=== PATIENT | female | born 1980 | race Caucasian/White ===

== ENCOUNTER 2017-03-15 11:25 | Emergency (ER) | payer MEDICAID ==
[~2017-03-15] VITALS: Ht 157.5 cm; Wt 51.7 kg
[~2017-03-15 11:25] MED LIST: ADVIL200 MG PO; ALEVE220 MG PO; ALL DAY ALLERGY10 MG PO; AMOXICILLIN 50500 MG PO; AMOXICOT500 MG PO; AZITHROMYCIN250 MG PO; BUPRENORPHINE H1 TAB SL; BUSPAR 10MG TAB10 MG PO; BUT/APAP/CAF PO; CHLORZOXAZONE500 MG OR; CIPRO 500MG TA500 MG PO; DARVOCET-N 1001 EACH PO; DOXYCYCLINE HY100 M4 PO; EC NAPROSYN500 MG PO; EXCEDRIN MIGRAINE PO; EXCEDRIN TENSIO1 CAP PO; FLAGYL 500MG.500 MG PO; FLEXERIL10 MG PO; GABAPENTIN 600600 MG PO; GRALISE600 M1 PO; HYDROCODONE1 TABLET PO; IBUPROFEN800 MG PO; IMODIUM 2MG. CAP2 MG PO; LEVOTHYROXINE0.05 M2 PO; LODINE200 MG PO; LOPERAMIDE HCL2 MG OR; LORTAB 5/500 501 TAB PO; MEDROL 4MG. DOSE4 MG PO; MIRTAZAPINE15 MG PO; MOTRIN800 MG PO; MUCINEX600 M1 PO; NAPROSYN 500MG500 MG PO; NOMEDS *; PREDNISONE 10MG10 MG PO; PREDNISONE5 MG PO; PRENATAL VITAMI1 TA9 PO; PROMETHAZINE HC25 M1 PO; ROBAXIN 500 MG500 MG PO; TRAMADOL 50MG T50 MG PO; TRAZODONE HCL50 MG PO; TRAZODONE50 MG PO; TYLENOL EXTRA500 M1 PO; TYLENOL W/CODEI1 TA2 PO; ULTRAM50 MG PO; VICODIN 5/500 T1 TAB PO; VOLTAREN75 MG PO; ZOLOFT100 MG PO
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
--- OUTSIDE RECORDS SUMMARY | 2017-03-15 11:51 | External Medical Summary Rpt | CCD ---
Author Author , SHREYA CASH Address Unknown Phone Care Team Providers Care Radiological Health Specialist Name Role Phone [facility] [place], Unavailable Unavailable [facility] [place] ARNOLD, ARNOLD Unavailable Unavailable ARNOLD GOSIA, ARNOLD Unavailable Unavailable GOSIA [facility] Unavailable Unavailable SERVICE, [facility] Unavailable Unavailable [place], [facility], Unavailable Unavailable [facility] Unavailable Unavailable [place], [facility] [place] [facility]available [facility]available [facility] Unavailable Unavailable HOSPITA, [facility] Unavailable Unavailable INC, [facility] Unavailable Unavailable HOSPITAL, [facility] Unavailable [facility]available [facility] P, P GONZALEZ [facility], GON[facility] Unavailable Unavailable [facility], Unavailable Unavailable [facility], Unavailable Unavailable [facility] Un[facility], [facility] Unavailable Unavailable INTER[facility], [facility] Unavailable Unavailable SERVICES, [facility] JAROD MACK MD, Unavailable Unavailable JAROD MACK MD [facility], Unavailable Unavailable PLL[facility], [facility] Unavailable Unavailable LAB, [facility] PETTEY CUATE, PETTEDagoberto Unavailable Unavailable CUATE CASEY, Unavailable Unavailable ROGERIO HASSAN III Unavailable Unavailable Rigoberto Yao Unavailable Unavailable Rigoberto VALERO MD, III, MD [facility] Unavailable Unavailable OF [place], [facility] [place] Purpose Continuity of Care Document - 07-14-2010 through 2016 Problems Code Diagnosis DOS Provider Status J40 BRONCHITIS 11-30-2016 [facility] NOT PHYSICIAN SPECIFIED GROUP ACUTE OR CHRONIC J705 RESPIRATORY 08-21-2016 ARNOLD CONDITIONS DUE TO SMOKE INHALATION J069 ACUTE UPPER 07-06-2016 [facility] RESPIRATORY INFECTION UNSPECIFIED J189 PNEUMONIA 04-24-2016 AR[facility]OLD UNSPECIFIED ORGANISM R0989 OTH SPEC SX 04-20-2016 [facility] CIRC & RESP SYS R0602 SHORTNESS 04-19-2016 [facility] OF BREATH PHYSICIAN GROUP J209 ACUTE 04-07-2016 ARNOSVALDO GOSIA BRONCHITIS UNSPECIFIED R091 PLEURISY 04-07-2016 ARNOLD GOSIA B03808 PAIN IN 02-19-2016 SHE[facility] GOSIA UNSPECIFIED KNEE M6240 CONTRACTURE 02-19-2016 ARNOSVALDO GOSIA OF MUSCLE UNSPECIFIED SITE R7881 BACTEREMIA 02-19-2016 SHEILA GOSIA I313 PERICARDIAL 02-05-2016 [facility] NONINFLAMMA [facility]OUND[facility] TORY I361 NONRHEUMATI 02-05-2016 [facility] TRICUSPID SERV VALVE [facility]OUNDATION INSUFFICIEN CY I517 CARDIOMEGAL 02-05-2016 [facility] Y [facility] T20873 PAIN IN 02-01-2016 [facility] LEFT [facility] SHOULDER [facility] R221 LOCALIZED 02-01-2016 [facility] SWELLING [facility] MASS AND FOUNDATION LUMP NECK I38 ENDOCARDITI 01-30-2016 [facility] S VALVE SERV UNSPECIFIED FOUNDATION I76 SEPTIC 01-30-2016 [facility] ART[facility] EMBOLISM FOUND[facility] A4153 SEPSIS DUE 01-22-2016 [facility] TO SERRATIA SERV FOUND[facility] B182 CHRONIC 01-22-2016 [facility] VIRAL [facility] HEPATITIS C FOUNDATION I2690 SEPTIC 01-22-2016 [facility] PULMONARY SERV EMBO W/O FOUNDATION ACUTE COR PULMONALE I319 DISEASE OF 01-22-2016 [facility] PERICARDIUM SERV [facility] UNSPECIFIED J90 PLEURAL 01-17-2016 [facility] E[facility] NOT FOUNDATION ELSEWHERE CLASSIFIED R918 OTHER 01-17-2016 [facility] NONSPECIFIC SERV ABNORMAL FOUNDATION FINDING OF LUNG FIELD A419 SEPSIS 01-16-2016 [facility] UNSPECIFIED [place] ORGANISM I339 ACUTE AND 01-16-2016 [facility] SUBACUTE [place] ENDOCARDITI S UNSPECIFIED I371 NONRHEUMATI 01-16-2016 [facility] PULMONARY SERV VALVE FOUNDATION INSUFFICIEN CY I493 VENTRICULAR 01-16-2016 [facility] PREMATURE SERV DEPOLARIZAT FOUNDATION ION J9811 ATELECTASIS 01-16-2016 [facility] R9431 ABNORMAL 01-16-2016 [place] [facility] ELECTROCARD SERV IOGRAM [facility] Z9989 DEPENDENCE 01-16-2016 [facility] ON OTHER [place] ENABLING MACHINES & DEVICES B9689 OTH SPEC 01-15-2016 [facility] AGNT CAUSE INTERNAL DZ MED CLASSIFIED ELSW I330 ACUTE AND 01-15-2016 [place] SUBACUTE VALLEY INFECTIVE INTERNAL ENDOCARDITI MED S I959 HYPOTENSION 01-15-2016 [facility] UNSPECIFIED INC R0789 OTHER CHEST 01-15-2016 [place] PAIN [facility] R509 FEVER 01-15-2016 [...] ARNOLD GOSIA SINUSITIS UNSPECIFIED R4182 ALTERED 11-03-2015 [facility] MENTAL AMBULANCE STATUS SERVICE UNSPECIFIED [id number] POISN UNS 11-03-2015 [facility] RX MEDS BIO AMBULANCE SUBSTANCE SERVICE SLF-HRM INIT ENC R4020 UNSPECIFIED 11-02-2015 [facility] O94719 MORGAN 11-02-2015 [facility] SCALE [facility], SCORE 9-12 PLLC [id number] POISN UNS 11-02-2015 [facility] RX MEDS BIO PHYSICIANS, SUBSTANCE PLLC UNDET INIT ENC V20163 PAIN IN 10-21-2015 [place] W76341P CONTUSION 10-21-2015 [facility] OF LEFT PHYSICIANS, HAND PLLC INITIAL ENCOUNTER [id number] UNSPECIFIED 10-21-2015 [place] INJURY LT MEDICAL WRIST HAND IMAGING ASS FINGERS INITIAL Z720 TOBACCO USE 10-21-2015 [facility] I11502 UNSPECIFIED 10-03-2015 ARNOLD GOSIA ASTHMA WITH STATUS ASTHMATICUS Y50741 PAIN IN 09-13-2015 [facility] RIGHT KNEE PHYSICIANS, PLLC R83983 PAIN IN 09-13-2015 [facility] LEFT KNEE MEM [facility]OS[facility] INC M545 LOW BACK 09-13-2015 [facility] PAIN [facility], PLLC K279 PEPTIC ULCR 08-22-2015 SHE[facility]A ELISE SITE UNS UNS AC/CHRN W/O HEM/PERF E079 DISORDER OF 08-16-2015 [facility] UNSPECIFIED HOSPITA R0981 NASAL 08-16-2015 [facility] [place] [facility] HOSPITA Z5321 PROC & TX 08-16-2015 [facility] [place] NOT CARRIED COMMUNTIY OUT PT HOSPITA LEAVE PRIOR TO SEEN X93440 PERSONAL 08-16-2015 [facility] [place] HISTORY [facility] OTHER MALIG HOSPITA NEOPLASM STOMACH L639 ALOPECIA 07-03-2015 [facility] AREATA PHYSICIANS UNSPECIFIED GROUP L981 FACTITIAL 07-03-2015 [facility] DERMATITIS PHYSICIANS GROUP B029 ZOSTER 07-01-2015 SHE[facility]A ELISE WITHOUT COMPLICATIO NS K30 FUNCTIONAL 04-30-2015 [facility] DYSPEPSIA PHYSICIANS GROUP R1013 EPIGASTRIC 04-30-2015 [facility] PAIN PHYSICIANS GROUP R112 NAUSEA WITH 04-30-2015 [facility] VOMITING PHYSICIANS UNSPECIFIED GROUP R197 DIARRHEA 04-30-2015 [facility] UNSPECIFIED PHYSICIANS GROUP R079 CHEST PAIN 04-10-2015 [place] UNSPECIFIED MEDICAL IMAGING ASS R1010 UPPER 04-10-2015 [facility] ABDOMINAL PH[facility]IANS, PAIN [facility] UNSPECIFIED R109 UNSPECIFIED 04-10-2015 [facility] P M7050 OTHER 04-09-2015 [facility] BURSITIS OF MEM HOSP KNEE INC UNSPECIFIED KNEE Y61444 OTH SPEC 04-09-2015 [facility] ENTHESOPATH [facility]OS[facility] IES UNS LOW INC LIMB EXCLUD FOOT E785 HYPERLIPIDE 04-08-2015 [facility] UNSPECIFIED [place] R634 ABNORMAL 04-08-2015 [facility] WEIGHT LOSS PHYSICIANS LA M2241 CHONDROMALA 03-13-2015 [facility] SANGEETHA PHYSICIANS PATELLAE GROUP RIGHT KNEE M2242 CHONDROMALA 03-13-2015 [facility] SANGEETHA PHYSICIANS PATELLAE GROUP LEFT KNEE G5601 CARPAL 03-06-2015 [facility] TUNNEL PHYSICIANS SYNDROME GROUP RIGHT UPPER LIMB G5621 LESION OF 03-06-2015 [facility] ULNAR NERVE PHYSICIANS RIGHT GROUP UPPER LIMB B86 SCABIES 02-27-2015 R110 NAUSEA 02-27-2015 D88144 PAIN IN 02-17-2015 [place] RIGHT FOOT [facility]ICAL [facility] ASS C1079TZ CONTUSION 02-17-2015 [facility] RIGHT PHYSICIANS, FOOT PLLC INITIAL ENCOUNTER M33159W UNSPECIFIED 02-17-2015 [place] INJURY MEDICAL RIGHT FOOT IMAGING ASS INITIAL ENCOUNTER Z043 ENCOUNTER 02-17-2015 [place] EXAM & MEDICAL OBSERVATION IMAGING ASS FOLLOW OTH ACCIDENT A5901 TRICHOMONAL 02-08-2015 [facility], VULVOVAGINI PLLC TIS N739 FEMALE 02-08-2015 [facility] PELVIC PHYSICIANS, INFLAMMATOR PLLC Y DISEASE UNSPECIFIED 86761 SPRAIN AND 01-30-2015 [facility] STRAIN OF [facility] UNSPECIFIED HOSPITAL SITE OF WRIST 84655 PAIN IN 01-04-2015 [place] JOINT, MEDICAL FOREARM IMAGING ASS 57678 PAIN IN 01-04-2015 [place] JOINT, MEDICAL LOWER LEG IMAGING ASS 61292 INJURY OF 01-04-2015 [place] FACE AND MEDICAL NECK OTHER IMAGING ASS AND UNSPECIFIED 9593 INJURY 01-04-2015 [place] OTHER&UNSPE MEDICAL CIFIED IMAGING ASS ELBOW FOREARM&WRI ST 9597 INJURY 01-04-2015 [place] OTHER&UNSPE MEDICAL CIFIED KNEE IMAGING ASS LEG ANKLE&FOOT 9594 INJURY 11-30-2014 [place] OTHER AND MEDICAL UNSPECIFIED IMAGING ASS HAND EXCEPT FINGER 4619 ACUTE 11-02-2014 ARNOSVALDO ELISE SINUSITIS, UNSPECIFIED 24292 OSTEOARTHRO 11-02-2014 SHEILA ELISE S INVLV MX SITES BUT NOT SPEC GEN 7242 LUMBAGO 11-02-2014 ARNOSVALDO GOSIA 7231 CERVICALGIA 07-10-2014 [facility] 7245 UNSPECIFIED 07-10-2014 [place] BACKACHE MEDICAL [facility]ING ASS 3542 LESION OF 06-06-2014 [facility] ULNAR NERVE PHYSICIANS GROUP 3829 UNSPECIFIED 04-30-2014 ARNOLD GOSIA OTITIS MEDIA 86935 INSOMNIA 04-30-2014 ARNOLD GOSIA UNSPECIFIED 69727 ABDOMINAL 04-30-2014 ARNOSVALDO GOSIA PAIN, GENERALIZED 4659 ACUTE URIS 04-20-2014 ARNOLD GOSIA OF UNSPECIFIED SITE 4660 ACUTE 01-22-2014 SHEILA GOSIA BRONCHITIS 3670 HYPERMETROP 12-08-2013 [place] [address] CLOSED 09-26-2013 ARNOSVALDO GOSIA FRACTURE OF UNSPECIFIED PART OF FOREARM 08464 CONTUSION 09-26-2013 PETTEY JAM OF WRIST 84953 PAIN IN 09-21-2013 ART JOINT, BHARAT UPPER [...] OBJECTS 305.1 305.1 06-04-2013 Aiden TOBACCO USE [facility] 840.8 840.8 06-04-2013 Aiden SPRAIN [facility] SHOULDER/CO Hospital [facility] 920 920 06-04-2013 Aiden CONTUSION [facility] FACE/SCALP/ Hospital NCK E849.0 E849.0 06-04-2013 Aiden ACCIDENT IN [facility] E882 E882 FALL 06-04-2013 Aiden FROM [facility] 7840 HEADACHE 06-03-2013 WEHRMAN III CARMELA 8409 SPRAIN&STRA 06-03-2013 WEHRMAN III IN UNSPEC CARMELA SITE SHOULDER&UP PER ARM 54729 HEAD 06-03-2013 WEHRMAN III INJURY, CARMELA UNSPECIFIED E8849 OTHER 06-03-2013 WEHRMAN III ACCIDENTAL CARMELA FALL FROM ONE LEVEL TO ANOTHER 719.41 719.41 01-17-2013 Aiden JOINT [facility] 728.85 728.85 01-17-2013 Aiden SPASM OF [facility] V14.8 V14.8 01-17-2013 Aiden HX-DRUG [facility] ALLERGY [facility] 96705 ENTHESOPATH 08-30-2012 ARNOSVALDO GOSIA Y OF UNSPECIFIED SITE 88072 VARIANTS 03-28-2012 ARNOLD GOSIA MIGRAINE [facility] INTRACT MIGRAINE W/O SM 462 ACUTE 03-28-2012 ARNOLD GOSIA PHARYNGITIS 63564 PAIN IN 03-26-2012 [facility] MEDICAL ANKLE AND IMAGING ASS FOOT 37928 UNSPECIFIED 03-26-2012 [facility] SITE OF ANKLE SPRAIN AND STRAIN 94124 CONTUSION 03-26-2012 [facility] 21997 CONTUSION 03-26-2012 [facility] OF FOOT [facility] 69453 CRUSHING 03-26-2012 [facility] INJURY OF EMERGENCY FOOT SERVICES 8470 NECK SPRAIN 10-22-2011 [facility] AND STRAIN [facility]ERGENCY SERVICES 22508 PLICA 09-30-2011 [facility] SYNDROME PHYSICIANS GROUP 61102 PATELLAR 09-09-2011 [facility] TENDINITIS [facility] INC V571 OTHER 09-09-2011 [facility] PHYSICAL [facility] THERAPY INC 51135 PES 09-08-2011 [facility] ANSERINUS PHYSICIANS TENDINITIS GROUP OR BURSITIS 6262 EXCESSIVE 02-13-2011 [facility] [place] N 1121 CANDIDIASIS 01-19-2011 PATHOLOGY & OF [facility] CYTOLOGY [facility] LAB V7231 ROUTINE 01-19-2011 PATHOLOGY & GYNECOLOGIC CYTOLOGY AL LAB EXAMINATION 8400 ACROMIOCLAV 10-20-2010 [facility] SPR[facility] STRAIN 8471 THORACIC 10-20-2010 [facility] SPRAIN AND EMERG[facility] STRAIN SERVICES Allergies, Adverse [...] NT E HI AN A IN C FL 00 07 08 10 5 00 EA [...] 46 DE ZA 11 17 17 14 FL 0 67 PH IN AR E MA [...] ET NT HI AN A IN C FL 65 03 04 30 7 00 EA [...] ET NT HI AN A IN C FL 65 02 03 30 7 00 EA [...] 30 7- 1- 00 00 SI ve RI 31 20 20 47 DE DE 10 [...] 46 DE ZA 11 17 17 14 FL 0 67 PH IN AR E MA [...] 46 DE ZA 11 16 17 14 FL 0 67 PH IN AR E MA [...] 34 20 20 DE 90 11 11 RI 1 PH CH AR AE MA L CY S OF CY NT HI AN A DI 00 06 06 0 20 10 EA 22 GA Ac CL 78 -1 -[address] 93 IN ti OF 11 4 SI 76 EY ve EN 78 20 20 DE AC 90 11 11 RI 1 PH CH SO AR AE D [...] End Date Code Location Performer Type Date [facility] - 6 6 [facility] OUTPATIEN [facility] AIDEN - 6 6 [facility]IENT [facility] AID[facility] - 6 6 [facility] OUTPATIEN [facility] AIDEN [facility] 6 6 [facility] OUTPATIEN [facility] 5 [facility]ID[facility] - 5 5 [facility]PATI[facility] - 5 5 [facility]PATI[facility] - 5 5 [facility]PATI[facility] - 5 5 [facility]PATIEN [facility] - 5 5 [facility] OUTPATIEN [facility] Emergency SARA Yao (ER) 4 22:52 4 00:13 [facility] Emergency SARA BARCLAY MD (ER) 3 11:52 3 12:38 [facility] Emergency SARA MACK (ER) 3 20:42 3 21:45 [facility] AIDEN - 3 3 [facility] AIDEN - 2 2 [facility] AIDEN - 2 2 [facility] - 2 2 [facility] A[facility] - 2 2 [facility] AID[facility] - 1 1 [facility] AID[facility] - 1 1 [facility] - 1 1 [facility]
--- OUTSIDE RECORDS SUMMARY | 2017-03-15 11:56 | External Medical Summary Rpt | CCD ---
Author Author , SHREYA CASH Address Unknown Phone [email or web address] Care Team Providers Care Consolidation Accountant Name Role Phone [facility] [place], Unavailable Unavailable [facility] [place] ARNOLD, ARNOLD Unavailable Unavailable ARNOLD GOSIA, ARNOLD Unavailable Unavailable [facility] Unavailable Unavailable SERVICE, [facility] Unavailable Unavailable [place], [facility], Unavailable Unavailable [facility] Unavailable Unavailable [place], [facility] [place] [facility]available Unavailable [facility] Unavailable Unavailable HOSPITA, [facility] Unavailable Unavailable INC, [facility] Unavailable Unavailable HOSPITAL, [facility] Unavailable [facility]available HOSPITAL P, [facility] GONZALEZ FAY, GONZALEZ FAY Unavailable Unavailable [facility], Unavailable Unavailable [facility]available Unavailable [facility] Unavailable [facility]available [facility], [facility] Un[facility], [facility] Unavailable Unavailable INTERNAL MED, [facility] Unavailable [facility]available SERVICES, [facility], Unavailable Unavailable PLL[facility], [facility] PATH[facility] Unavailable Unavailable LAB, [facility] PETTEY JAM, PETTEY Unavailable Unavailable JAM WEHRMAN III CARMELA, Unavailable Unavailable WEHRMAN III CARMELA PHILLIP, ROGERIO PHILLIP Unavailable Unavailable [facility] Unavailable Unavailable [facility] [place], [facility] [place] Purpose Continuity of Care Document - 07-14-2010 through 2016 Problems Code Diagnosis DOS Provider Status J40 BRONCHITIS 11-30-2016 [facility] NOT PHYSICIAN SPECIFIED GROUP ACUTE OR CHRONIC J705 RESPIRATORY 08-21-2016 ARNOLD CONDITIONS DUE TO SMOKE INHALATION J069 ACUTE UPPER 07-06-2016 ARNOLD RESPIRATORY INFECTION UNSPECIFIED J189 PNEUMONIA 04-24-2016 [facility] UNSPECIFIED ORGANISM R0989 OTH SPEC SX 04-20-2016 [place] [facility]ING [facility] CIRC & RESP SYS R0602 SHORTNESS 04-19-2016 [facility] OF BREATH PHYSICIAN GROUP J209 ACUTE 04-07-2016 SHE[facility] ELISE BRONCHITIS UNSPECIFIED R091 PLEURISY 04-07-2016 [facility] ELISE [id number] PAIN IN 02-19-2016 [facility] ELISE UNSPECIFIED KNEE M6240 CONTRACTURE 02-19-2016 SHEIL[facility] ELISE OF MUSCLE UNSPECIFIED SITE R7881 BACTEREMIA 02-19-2016 [facility] ELISE I313 PERICARDIAL 02-05-2016 [facility] EFFUSION SERV NONINFLAMMA FOUNDATION TORY I361 NONRHEUMATI 02-05-2016 [facility] C TRICUSPID SERV VALVE FOUNDATION INSUFFICIEN CY I517 CARDIOMEGAL 02-05-2016 [place] [facility] M49892 PAIN IN 02-01-2016 [facility] LEFT SERV SHOULDER FOUNDATION R221 LOCALIZED 02-01-2016 [facility] SWELLING SERV MASS AND FOUNDATION LUMP NECK I38 ENDOCARDITI 01-30-2016 [facility] S VALVE SERV UNSPECIFIED FOUNDATION I76 SEPTIC 01-30-2016 [facility] ARTERIAL SERV EMBOLISM FOUNDATION A4153 SEPSIS DUE 01-22-2016 [facility]ICAL TO SERRATIA SERV FOUNDATION B182 CHRONIC 01-22-2016 [facility] VIRAL SERV HEPATITIS C FOUNDATION I2690 SEPTIC 01-22-2016 [facility] PULMONARY SERV EMBO W/O FOUNDATION ACUTE COR PULMONALE I319 DISEASE OF 01-22-2016 [facility] PERICARDIUM SERV FOUNDATION UNSPECIFIED J90 PLEURAL 01-17-2016 [facility] EFFUSION SERV NOT FOUNDATION ELSEWHERE CLASSIFIED R918 OTHER 01-17-2016 [facility] MEDICAL NONSPECIFIC SERV ABNORMAL FOUNDATION FINDING OF LUNG FIELD A419 SEPSIS 01-16-2016 [facility] UNSPECIFIED [place] ORGANISM I339 ACUTE AND 01-16-2016 [facility] SUBACUTE [place] ENDOCARDITI S UNSPECIFIED I371 NONRHEUMATI 01-16-2016 [facility]ICAL C PULMONARY SERV VALVE FOUNDATION INSUFFICIEN CY I493 VENTRICULAR 01-16-2016 [facility] MEDICAL PREMATURE SERV DEPOLARIZAT FOUNDATION ION J9811 ATELECTASIS 01-16-2016 [facility] R9431 ABNORMAL 01-16-2016 [facility] ELECTROCARD SERV IOGRAM FOUNDATION Z9989 DEPENDENCE 01-16-2016 [facility] ON OTHER [place] ENABLING MACHINES & DEVICES B9689 OTH SPEC 01-15-2016 [place] BACTERIAL VALLEY AGNT CAUSE INTERNAL DZ MED CLASSIFIED ELSW I330 ACUTE AND 01-15-2016 [place] SUBACUTE VALLEY INFECTIVE INTERNAL ENDOCARDITI MED S I959 HYPOTENSION 01-15-2016 [facility] UNSPECIFIED INC R0789 OTHER CHEST 01-15-2016 [facility] R509 FEVER 01-15-2016 [facility] UNSPECIFIED PHYSICIANS, PLLC R680 HYPOTHERMIA 01-15-2016 [place] NOT ASSOC VALLEY W/LOW ENVIR INTERNAL MED TEMPERATURE J0390 ACUTE 01-06-2016 [facility] [place] UNSPECIFIED R05 COUGH 01-06-2016 [facility] [place] R300 DYSURIA 01-06-2016 [facility] [place] R531 WEAKNESS 01-06-2016 [facility] [place] K5289 OTH SPEC 01-01-2016 SHEILA GOSIA NONINFECTIV E GASTROENTER ITIS & COLITIS E039 HYPOTHYROID 12-05-2015 ARNOS[facility]DO GOSIA ISM UNSPECIFIED G894 CHRONIC 12-05-2015 FINAOSVALDO GOSIA PAIN SYNDROME J0190 ACUTE 12-05-2015 SHEILA GOSIA SINUSITIS UNSPECIFIED R4182 ALTERED 11-03-2015 [facility] MENTAL AMBULANCE STATUS SERVICE UNSPECIFIED [id number] POISN UNS 11-03-2015 [facility] RX MEDS BIO AMBULANCE SUBSTANCE SERVICE SLF-HRM INIT ENC R4020 UNSPECIFIED 11-02-2015 [facility] C96108 MORGAN 11-02-2015 [facility] COMA SCALE PHYSICIANS, SCORE 9-12 PLL C43118T POISN UNS 11-02-2015 [facility] RX MEDS BIO PHYSICIANS, SUBSTANCE [facility] UNDET INIT ENC B67623 PAIN IN 10-21-2015 [facility] LEFT HAND [facility] L72748W CONTUSION 10-21-2015 [facility] OF LEFT PHYSICIANS, HAND PLL INITIAL ENCOUNTER I0658DH UNSPECIFIED 10-21-2015 [facility] INJURY LT MEDICAL WRIST HAND IMAGING ASS FINGERS INITIAL Z720 TOBACCO USE 10-21-2015 [facility] INC R07271 UNSPECIFIED 10-03-2015 ARNOSVALDO GOSIA ASTHMA WITH STATUS ASTHMATICUS T73716 PAIN IN 09-13-2015 [facility] RIGHT KNEE PHYSICIANS, PLLC R85177 PAIN IN 09-13-2015 [facility] LEFT KNEE MEM [facility]OS[facility] INC M545 LOW BACK 09-13-2015 [facility] PAIN PHYSICIANS, PLLC K279 PEPTIC ULCR 08-22-2015 SHEILA GOSIA SITE UNS UNS AC/CHRN W/O HEM/PERF E079 DISORDER OF 08-16-2015 [facility] UNSPECIFIED HOSPITA R0981 NASAL 08-16-2015 [facility] [facility] H[facility] Z5321 PROC & TX 08-16-2015 [place] NOT CARRIED COMMUNTIY OUT PT HOSPITA LEAVE PRIOR TO SEEN D32611 PERSONAL 08-16-2015 [place] [facility] OTHER MALIG HOSPITA NEOPLASM STOMACH L639 ALOPECIA 07-03-2015 [facility] AREATA PHYSICIANS UNSPECIFIED GROUP L981 FACTITIAL 07-03-2015 [facility] DERMATITIS PHYSICIANS GROUP B029 ZOSTER 07-01-2015 SHEILA ELISE WITHOUT COMPLICATIO NS K30 FUNCTIONAL 04-30-2015 [facility] DYSPEPSIA PHYSICIANS GROUP R1013 EPIGASTRIC 04-30-2015 [facility] PAIN PHYSICIANS GROUP R112 NAUSEA WITH 04-30-2015 [facility] VOMITING PHYSICIANS UNSPECIFIED GROUP R197 DIARRHEA 04-30-2015 [facility] UNSPECIFIED PHYSICIANS GROUP R079 CHEST PAIN 04-10-2015 [facility] UNSPECIFIED [facility]ICAL IM[facility]ING ASS R1010 UPPER 04-10-2015 [facility] ABDOMINAL PHYSICIANS, PAIN PLLC UNSPECIFIED R109 UNSPECIFIED 04-10-2015 [facility] P M7050 OTHER 04-09-2015 [facility] BURSITIS OF MEM HOSP KNEE INC UNSPECIFIED KNEE E01270 OTH SPEC 04-09-2015 [facility] ENTHESOPATH MEM [facility]OS[facility] IES UNS LOW INC LIMB EXCLUD FOOT E785 HYPERLIPIDE 04-08-2015 [facility] MARIA L PHYSICIANS UNSPECIFIED LA R634 ABNORMAL 04-08-2015 [facility] WEIGHT LOSS PHYSICIANS LA M2241 CHONDROMALA 03-13-2015 [facility] SANGEETHA PHYSICIANS PATELLAE GROUP RIGHT KNEE M2242 CHONDROMALA 03-13-2015 [facility] SANGEETHA PHYSICIANS PATELLAE GROUP LEFT KNEE G5601 CARPAL 03-06-2015 [facility] TUNNEL PHYSICIANS SYNDROME GROUP RIGHT UPPER LIMB G5621 LESION OF 03-06-2015 [facility] ULNAR NERVE PHYSICIANS RIGHT GROUP UPPER LIMB B86 SCABIES 02-27-2015 [facility] R110 NAUSEA 02-27-2015 [facility] W89969 PAIN IN 02-17-2015 [facility] FOOT [facility] L1209YP CONTUSION 02-17-2015 [facility] OF RIGHT PHYSICIANS, FOOT PLLC INITIAL ENCOUNTER U52537N UNSPECIFIED 02-17-2015 [facility] MEDICAL RIGHT FOOT IMAGING ASS INITIAL ENCOUNTER Z043 ENCOUNTER 02-17-2015 [facility] EXAM & MEDICAL OBSERVATION IMAGING ASS FOLLOW OT ACCIDENT A5901 TRICHOMONAL 02-08-2015 [facility], VULVOVAGINI PLLC TIS N739 FEMALE 02-08-2015 [facility] PELVIC PHYSICIANS, INFLAMMATOR PLLC Y DISEASE UNSPECIFIED 61337 SPRAIN AND 01-30-2015 [facility] STRAIN OF [facility] UNSPECIFIED HOSPITAL SITE OF WRIST 07570 PAIN IN 01-04-2015 [facility] JOINT, MEDICAL FOREARM IMAGING ASS 10284 PAIN IN 01-04-2015 [facility] JOINT, MEDICAL LOWER LEG IMAGING ASS 52140 INJURY OF 01-04-2015 [place] FACE AND MEDICAL NECK OTHER IMAGING ASS AND UNSPECIFIED 9593 INJURY 01-04-2015 [place] OTHER&UNSPE MEDICAL CIFIED IMAGING ASS ELBOW FOREARM&WRI ST 9597 INJURY 01-04-2015 [facility] OTHER&UNSPE MEDICAL CIFIED KNEE IMAGING ASS LEG ANKLE&FOOT 9594 INJURY 11-30-2014 [facility] OTHER AND MEDICAL UNSPECIFIED IMAGING ASS HAND EXCEPT FINGER 4619 ACUTE 11-02-2014 SHEILA ELISE SINUSITIS, UNSPECIFIED 61595 OSTEOARTHRO 11-02-2014 SHEILA ELISE S INVLV MX SITES BUT NOT SPEC GEN 7242 LUMBAGO 11-02-2014 SHEILA ELISE 7231 CERVICALGIA 07-10-2014 [facility] 7245 UNSPECIFIED 07-10-2014 [facility] BACKACHE MEDICAL [facility] ASS 3542 LESION OF 06-06-2014 [facility] ULNAR NERVE PHYSICIANS GROUP 3829 UNSPECIFIED 04-30-2014 SHEILA GOSIA OTITIS MEDIA 80368 INSOMNIA 04-30-2014 ARNOLD GOSIA UNSPECIFIED 37465 ABDOMINAL 04-30-2014 SHEILA GOSIA PAIN, GENERALIZED 4659 ACUTE URIS 04-20-2014 ARNOLD GOSIA OF UNSPECIFIED SITE 4660 ACUTE 01-22-2014 ARNOSVALDO GOSIA BRONCHITIS 3670 HYPERMETROP 12-08-2013 [place] [address] CLOSED 09-26-2013 ARNOVSALDO GOSIA FRACTURE OF UNSPECIFIED PART OF FOREARM 18779 CONTUSION 09-26-2013 PETTEY JAM OF WRIST 69958 PAIN IN 09-21-2013 ART JOINT, BHARAT UPPER ARM 7295 PAIN IN 09-21-2013 ART SOFT BHARAT TISSUES OF LIMB 9140 HAND NO 09-21-2013 [facility] KENJI FINGER ALONE ABRAS/FRIC BURN W/O INF 9599 INJURY 09-21-2013 ART OTHER AND BHARAT UNSPECIFIED UNSPECIFIED SITE E8810 ACCIDENTAL 09-21-2013 ROGERIO PHILLIP FALL FROM LADDER E918 CAUGHT 09-21-2013 RAT ACCIDENTALL BHARAT Y IN OR BETWEEN OBJECTS 7840 HEADACHE 06-03-2013 WEHRMAN III CARMELA 8409 SPRAIN&STRA 06-03-2013 WEHRMAN III IN UNSPEC CARMELA SITE SHOULDER&UP PER ARM 17487 HEAD 06-03-2013 WEHRMAN III INJURY, CARMELA UNSPECIFIED E8849 OTHER 06-03-2013 WEHRMAN III ACCIDENTAL CARMELA FALL FROM ONE LEVEL TO ANOTHER 17647 ENTHESOPATH 08-30-2012 SHEILA EILSE Y OF UNSPECIFIED SITE 68044 VARIANTS 03-28-2012 SHEIL[facility] ELISE MIGRAINE NEC INTRACT MIGRAINE W/O SM 462 ACUTE 03-28-2012 SHE[facility] ELISE PHARYNGITIS 24345 PAIN IN 03-26-2012 [facility], MEDICAL ANKLE AND IMAGING ASS FOOT 26573 UNSPECIFIED 03-26-2012 [facility] SITE OF ANKLE SPRAIN AND STRAIN 31410 CONTUSION 03-26-2012 [facility] 54364 CONTUSION 03-26-2012 [facility] OF FOOT [facility]OS[facility] INC 64551 CRUSHING 03-26-2012 [facility]GENCY FOOT SERVICES 8470 NECK SPRAIN 10-22-2011 [facility] 43005 PLICA 09-30-2011 [facility] SYNDROME PHYSICIANS GROUP 96417 PATELLAR 09-09-2011 [facility] TENDINITIS MEM [facility]OSP INC V571 OTHER 09-09-2011 [facility] PHYSICAL [facility] THERAPY INC 12490 PES 09-08-2011 [facility] ANSERINUS PHYSICIANS TENDINITIS GROUP OR BURSITIS 6262 EXCESSIVE 02-13-2011 [facility] [place] N 1121 CANDIDIASIS 01-19-2011 PATHOLOGY & OF [facility] CYTOLOGY AND VAGINA LAB V7231 ROUTINE 01-19-2011 PATHOLOGY & GYNECOLOGIC CYTOLOGY AL LAB EXAMINATION 8400 ACROMIOCLAV 10-20-2010 [facility] SPRAIN [facility] STRAIN 8471 THORACIC 10-20-2010 [facility] STRAIN SERVICES Medications Na ND Rx Da Fi Fi [...] NT E HI AN A IN C NV 00 07 08 10 5 00 EA [...] ET HI AN A IN C LE 00 05 06 30 30 00 EA Ac [...] 46 DE ZA 11 17 17 14 NV 0 67 PH IN AR E MA 10 CY MG OF CY TA NT BL HI ET AN A IN C LE 00 04 05 30 30 00 EA Ac [...] ET NT HI AN A IN C NV 65 03 04 30 7 00 EA Ac OM 16 -2 -[address] ti ET 20 9- 8- 00 00 SI ve HURTADO 52 20 20 47 DE ZI 11 17 17 77 NE 1 86 PH AR 25 MA CY MG OF TA CY BL NT ET HI AN A IN C GA 16 03 04 90 30 00 EA Ac BA 71 -0 -[address] ti PE 40 3- 7- 00 00 SI ve NT 33 20 20 45 DE IN 00 17 17 26 2 56 PH 60 AR 0 MA MG CY TA OF BL CY ET NT HI AN A IN C NV 65 02 03 30 7 00 EA [...] 30 7- 1- 00 00 SI ve AK 31 20 20 47 DE DE 10 [...] 46 DE ZA 11 17 17 14 NV 0 67 PH IN AR E MA 10 CY MG OF CY TA NT BL HI ET AN A IN C CE 16 02 03 30 30 00 EA Ac TI 71 -0 -[address] ti RI 40 1- 3- 00 00 SI ve ZI 27 20 20 45 DE NE 10 17 17 26 3 58 PH HC AR L MA 10 CY MG OF CY TA NT BL HI ET AN A IN C LE 00 02 03 30 30 00 EA Ac VO 37 -0 -[address] ti TH 81 1- 3- 00 00 SI ve YR 80 20 20 45 DE OX 31 17 17 26 IN 0 57 PH E AR 50 MA CY MC G OF TA CY BL NT ET HI AN A IN C GA 16 02 03 90 30 00 EA Ac BA 71 -0 -[address] ti PE 40 1- 3- 00 00 SI ve NT 33 20 20 45 DE IN 00 17 17 26 2 56 PH 60 AR 0 MA MG CY TA OF BL CY ET NT HI AN A IN C BU 00 02 03 90 30 00 EA Ac SP 37 -0 -[address] ti IR 81 1- 3- 00 00 SI ve ON 15 20 20 44 DE E 00 17 17 56 HC 5 47 PH L AR 10 MA CY MG OF TA CY BL NT ET HI AN A IN C LE 65 02 03 10 10 00 EA Ac VO 86 -0 -[address] ti FL 20 1- 3- 00 00 SI ve OX 53 20 20 46 DE AC 75 17 17 92 IN 0 42 PH AR 50 MA 0 CY MG OF TA CY BL NT ET HI AN A IN C LE 65 12 01 10 10 00 EA Ac VO 86 -1 -[address] ti FL 20 6- 0- 00 00 SI ve OX 53 20 20 46 DE AC 75 16 17 92 IN 0 42 PH AR 50 MA 0 CY MG OF TA CY BL NT ET HI AN A IN C CE 16 12 01 30 30 00 EA Ac TI 71 [...] 46 DE ZA 11 16 17 14 NV 0 67 PH IN AR E MA 10 CY MG OF CY TA NT BL HI ET AN A IN C FL 16 10 10 2 30 30 [...] 5 EA 24 RO Ac IT 09 - -[address] 58 ON ti HR [...] ST 58 ON ti NE 51 9- 9- 00 SI 12 EY ve X 28 [...] -[address] 41 AR ti 10 7- 7- 00 SI 92 KE ve 34 20 20 DE 90 11 11 DE 1 PH RE AR K MA J CY OF CY NT HI AN A IB 53 10 10 1 40 7 EA 24 CL Ac UP 74 -0 -[address] 41 AR ti RO 60 7- 7- 00 SI 93 KE ve FE 46 20 [...] -[address] 93 IN ti 10 4- 4- 00 SI 75 EY ve 34 20 20 DE 90 11 11 AK 1 PH CH AR AE MA L CY S OF CY NT HI AN A DI 00 06 06 0 20 10 EA 22 GA Ac CL 78 -1 -[address] 93 IN ti OF 11 4 00 SI 76 EY ve EN 78 20 20 DE AC 90 11 11 AK 1 PH CH SO AR AE D MA L EC CY S 75 OF MG CY NT TA HI B AN A AM 00 05 05 0 21 7 EA 22 WE Ac OX 78 -2 -[address] 68 LL ti IC 12 5- 5- 00 SI 81 S ve IL 61 20 [...] -[address] 77 AD ti 10 1 SI 96 E ve 38 20 20 [...] .0 ST 69 AD ti 10 5- 5 SI 86 E ve 38 20 20 DE DM 50 11 11 D 1 PH JE AR WE MA LL CY OF CY NT HI AN A 00 03 03 0 20 3 EA 21 ME Ac 59 -1 -[address] 69 AD ti 10 5 5 SI 86 E ve 38 20 20 [...] -[address] 57 AD ti 10 7 7- SI 97 E ve 38 20 20 DE JE 50 11 11 WE 1 PH LL AR R MA CY OF CY NT HI AN A Procedures Procedure DOS Code Location Performer Comment HYSTEROSC 6812 [facility] WOLFE OPY 1 [facility] ENDOMETRI 6823 [facility] WOLFE AL 1 [facility] Encounters Encounter Start End Date Code Location Performer Type Date [facility] AIDEN - 6 6 [facility] AIDEN - [address] [facility] A[facility] - 6 6 [facility] - 6 [facility] - 5 5 [facility] - 5 5 [facility] - 5 [facility] - [facility] - [facility] - [facility] - [facility] - [facility] - [facility] - 1 1 [facility] - 1 1 [facility] - 1 1 [facility]
--- OUTSIDE RECORDS SUMMARY | 2017-03-15 11:56 | External Medical Summary Rpt | CCD ---
Author Author , SHREYA CASH Address Unknown Phone [email or web address] Care Team Providers Care Shank Turner Name Role Phone [facility] [place], Unavailable Unavailable [facility] [place] ARNOLD, ARNOLD Unavailable Unavailable ARNOLD GOSIA, ARNOLD Unavailable Unavailable [facility] Unavailable Unavailable SERVICE, [facility] Unavailable Unavailable [place], [facility], Unavailable Unavailable [facility] Un[facility] Unavailable [place], [facility] [place] [facility] Unavailable Unavailable [facility] Unavailable Unavailable HOSPITA, [facility] Unavailable Unavailable INC, [facility] Unavailable Unavailable HOSPITAL, [facility] Unavailable [facility]available HOSPITAL P, [facility] GONZALEZ FAY, GONZALEZ FAY Unavailable Unavailable [facility], Unavailable Unavailable [facility], Unavailable Unavailable [facility] Unavailable Unavailable [facility], [facility] Un[facility], [facility] Unavailable Unavailable INTERNAL MED, [facility] Unavailable Unavailable SERVICES, [facility], Unavailable Unavailable PLL[facility], [facility] Unavailable Unavailable LAB, [facility] PETTEY JAM, PETTEY Unavailable Unavailable JAM WEHRMAN III CARMELA, Unavailable Unavailable WEHRMAN III CARMELA PHILLIP, ROGERIO PHILLIP Unavailable Unavailable [facility] Unavailable Unavailable [facility] [place], [facility] [place] Purpose Continuity of Care Document - 07-14-2010 through 2016 Problems Code Diagnosis DOS Provider Status J40 BRONCHITIS 11-30-2016 [facility] NOT PHYSICIAN SPECIFIED GROUP ACUTE OR CHRONIC J705 RESPIRATORY 08-21-2016 ARNOLD CONDITIONS DUE TO SMOKE INHALATION J069 ACUTE UPPER 07-06-2016 ARNOLD RESPIRATORY INFECTION UNSPECIFIED J189 PNEUMONIA 04-24-2016 ARNOLD UNSPECIFIED ORGANISM R0989 OTH SPEC SX 04-20-2016 [place] [facility] CIRC & RESP SYS R0602 SHORTNESS 04-19-2016 [facility] OF BREATH PHYSICIAN GROUP J209 ACUTE 04-07-2016 SHE[facility] ELISE BRONCHITIS UNSPECIFIED R091 PLEURISY 04-07-2016 [facility] EL[facility] D20169 PAIN IN 02-19-2016 [facility] ELISE UNSPECIFIED KNEE M6240 CONTRACTURE 02-19-2016 [facility] EL[facility] OF MUSCLE UNSPECIFIED SITE R7881 BACTEREMIA 02-19-2016 [facility] I313 PERICARDIAL 02-05-2016 [facility] NONINFLAMMA [facility] TORY I361 NONRHEUMATI 02-05-2016 [facility] TRICUSPID SERV VALVE [facility] INSUFFICIEN CY I517 CARDIOMEGAL 02-05-2016 [place] [facility] X91134 PAIN IN 02-01-2016 [facility] SHOULDER [facility] R221 LOCALIZED 02-01-2016 [facility] S[facility]LL[facility] MASS AND F[facility]ATION LUMP NECK I38 ENDOCARDITI 01-30-2016 [facility] S VALVE [facility] UNSPECIFIED FOUNDATION I76 SEPTIC 01-30-2016 [facility] ART[facility] EMBOLISM [facility] A4153 SEPSIS DUE 01-22-2016 [facility] TO SERRATIA SERV [facility] B182 CHRONIC 01-22-2016 [facility] VIRAL [facility] HEPATITIS C FOUNDATION I2690 SEPTIC 01-22-2016 [facility] PULMONARY SERV EMBO W/O FOUNDATION ACUTE COR PULMONALE I319 DISEASE OF 01-22-2016 [facility] PERICARDIUM SERV [facility] UNSPECIFIED J90 PLEURAL 01-17-2016 [facility] EFFUS[facility] NOT FOUNDATION ELSEWHERE CLASSIFIED R918 OTHER 01-17-2016 [facility] NONSPECIFIC SERV ABNORMAL [facility]OUND[facility] FINDING OF LUNG FIELD A419 SEPSIS 01-16-2016 [facility] UNSPECIFIED [place] ORGANISM I339 ACUTE AND 01-16-2016 [facility] SUBACUTE [place] ENDOCARDITI S UNSPECIFIED I371 NONRHEUMATI 01-16-2016 [facility] PULMONARY SERV VALVE [facility] INSUFFICIEN CY I493 VENTRICULAR 01-16-2016 [facility] PREMATURE SERV DEPOLARIZAT FOUNDATION ION J9811 ATELECTASIS 01-16-2016 [facility] R9431 ABNORMAL 01-16-2016 [facility] ELECTROCARD SERV IOGRAM [facility] Z9989 DEPENDENCE 01-16-2016 [facility] ON OTHER [place] ENABLING MACHINES & DEVICES B9689 OTH SPEC 01-15-2016 [facility] B[facility]ERIAL [facility]LEY AGNT CAUSE INTERNAL DZ MED CLASSIFIED ELSW I330 ACUTE AND 01-15-2016 [facility] SUBACUTE VALLEY INFECTIVE INTERNAL ENDOCARDITI MED S I959 HYPOTENSION 01-15-2016 [facility] UNSPECIFIED INC R0789 OTHER CHEST 01-15-2016 [place] [place] PAIN [facility] R509 FEVER 01-15-2016 [...] SHEILA GOSIA SINUSITIS UNSPECIFIED R4182 ALTERED 11-03-2015 [facility] MENTAL AMBULANCE STATUS SERVICE UNSPECIFIED I29967I POISN UNS 11-03-2015 [facility] RX MEDS BIO AMBULANCE SUBSTANCE SERVICE SLF-HRM INIT ENC R4020 UNSPECIFIED 11-02-2015 [facility] [place] COMA [facility] S02734 MORGAN 11-02-2015 [facility] COM[facility] SCALE [facility]ANS, SCORE 9-12 PLL [id number] POISN UNS 11-02-2015 [facility] RX MEDS BIO PHYSICIANS, SUBSTANCE [facility] UNDET INIT ENC W34093 PAIN IN 10-21-2015 [place] LEFT HAND [facility] [id number] CONTUSION 10-21-2015 [facility] OF LEFT PHYSICIANS, HAND PLL INITIAL ENCOUNTER X5291AH UNSPECIFIED 10-21-2015 [place] INJURY LT MEDICAL WRIST HAND IMAGING ASS FINGERS INITIAL Z720 TOBACCO USE 10-21-2015 [facility] W91913 UNSPECIFIED 10-03-2015 ARNOSVALDO GOSIA ASTHMA WITH STATUS ASTHMATICUS Z20709 PAIN IN 09-13-2015 [facility] RIGHT KNEE PHYSICIANS, PLLC O84608 PAIN IN 09-13-2015 [facility] LEFT KNEE [facility] INC M545 LOW BACK 09-13-2015 [facility] PAIN [facility]YS[facility], PLLC K279 PEPTIC ULCR 08-22-2015 SHEILA GOSIA SITE UNS UNS AC/CHRN W/O HEM/PERF E079 DISORDER OF 08-16-2015 [facility] UNSPECIFIED [facility]OSPITA R0981 NASAL 08-16-2015 [facility] Z5321 PROC & TX 08-16-2015 [facility] OUT PT HOSPITA LEAVE PRIOR TO SEEN U62503 PERSONAL 08-16-2015 [facility] OTHER MALIG HOSPITA NEOPLASM STOMACH L639 ALOPECIA 07-03-2015 [facility] AREATA PHYSICIANS UNSPECIFIED GROUP L981 FACTITIAL 07-03-2015 [facility] DERMATITIS PHYSICIANS GROUP B029 ZOSTER 07-01-2015 SHE[facility] ELISE WITHOUT COMPLICATIO NS K30 FUNCTIONAL 04-30-2015 [facility] DYSPEPSIA PHYSICIANS GROUP R1013 EPIGASTRIC 04-30-2015 [facility] PAIN PHYSICIANS GROUP R112 NAUSEA WITH 04-30-2015 [facility] VOMITING PHYSICIANS UNSPECIFIED GROUP R197 DIARRHEA 04-30-2015 [facility] UNSPECIFIED PHYSICIANS GROUP R079 CHEST PAIN 04-10-2015 [place] UNSPECIFIED MEDICAL IMAGING ASS R1010 UPPER 04-10-2015 [facility] ABDOMINAL PHYSICIANS, PAIN PLLC UNSPECIFIED R109 UNSPECIFIED 04-10-2015 [facility] P M7050 OTHER 04-09-2015 [facility] BURSITIS OF MEM HOSP KNEE INC UNSPECIFIED KNEE E92403 OTH SPEC 04-09-2015 [facility] ENTHESOPATH [facility]OS[facility] IES UNS LOW INC LIMB EXCLUD FOOT E785 HYPERLIPIDE 04-08-2015 [facility] UNSPECIFIED [place] R634 ABNORMAL 04-08-2015 [facility] WEIGHT LOSS PHYSICIANS LA M2241 CHONDROMALA 03-13-2015 [facility] SANGEETHA PHYSICIANS PATELLAE GROUP RIGHT KNEE M2242 CHONDROMALA 03-13-2015 [facility] SANGEETHA PHYSICIANS PATELLAE GROUP LEFT KNEE G5601 CARPAL 03-06-2015 [facility] TUNNEL PHYSICIANS SYNDROME GROUP RIGHT UPPER LIMB G5621 LESION OF 03-06-2015 [facility] ULNAR NERVE PHYSICIANS RIGHT GROUP UPPER LIMB B86 SCABIES 02-27-2015 [facility] R110 NAUSEA 02-27-2015 [facility] H41314 PAIN IN 02-17-2015 [place] RIGHT FOOT [facility]ICAL [facility] T5316JE CONTUSION 02-17-2015 [facility] OF RIGHT PHYSICIANS, FOOT PLLC INITIAL ENCOUNTER [id number] UNSPECIFIED 02-17-2015 [facility] IN[facility] MED[facility] RIGHT FOOT IMAGING ASS INITIAL ENCOUNTER Z043 ENCOUNTER 02-17-2015 [place] EXAM & MEDICAL OBSERVATION IMAGING ASS FOLLOW OT ACCIDENT A5901 TRICHOMONAL 02-08-2015 [facility], VULVOVAGINI PLLC TIS N739 FEMALE 02-08-2015 [facility] PELVIC PHYSICIANS, INFLAMMATOR PLLC Y DISEASE UNSPECIFIED 39022 SPRAIN AND 01-30-2015 [facility] STRAIN OF [facility] UNSPECIFIED HOSPITAL SITE OF WRIST 86099 PAIN IN 01-04-2015 [place] JOINT, MEDICAL FOREARM IMAGING ASS 39911 PAIN IN 01-04-2015 [place] JOINT, MEDICAL LOWER LEG IMAGING ASS 92256 INJURY OF 01-04-2015 [place] [facility] N[facility]K OTHER IMAGING ASS AND UNSPECIFIED 9593 INJURY 01-04-2015 [place] OTHER&UNSPE MEDICAL CIFIED IMAGING ASS ELBOW FOREARM&WRI ST 9597 INJURY 01-04-2015 [facility] OTHER&UNSPE MEDICAL CIFIED KNEE IMAGING ASS LEG ANKLE&FOOT 9594 INJURY 11-30-2014 [facility] OTHER AND MEDICAL UNSPECIFIED IMAGING ASS HAND EXCEPT FINGER 4619 ACUTE 11-02-2014 SHEILA ELISE SINUSITIS, UNSPECIFIED 69516 OSTEOARTHRO 11-02-2014 [facility] ELISE S INVLV MX SITES BUT NOT SPEC GEN 7242 LUMBAGO 11-02-2014 [facility] ELISE 7231 CERVICALGIA 07-10-2014 [facility] 7245 UNSPECIFIED 07-10-2014 [place] BACKACHE MEDICAL IM[facility]ING ASS 3542 LESION OF 06-06-2014 [facility] ULNAR NERVE PHYSICIANS GROUP 3829 UNSPECIFIED 04-30-2014 SHEILA GOSIA OTITIS MEDIA 75316 INSOMNIA 04-30-2014 ARNOLD GOSIA UNSPECIFIED 61791 ABDOMINAL 04-30-2014 SHEILA GOSIA PAIN, GENERALIZED 4659 ACUTE URIS 04-20-2014 ARNOLD GOSIA OF UNSPECIFIED SITE 4660 ACUTE 01-22-2014 ARNOSVALDO GOSIA BRONCHITIS 3670 HYPERMETROP 12-08-2013 [place] [address] CLOSED 09-26-2013 ARNOSVALDO GOSIA FRACTURE OF UNSPECIFIED PART OF FOREARM 82202 CONTUSION 09-26-2013 PETTEY JAM OF WRIST 53222 PAIN IN 09-21-2013 ART JOINT, BHARAT UPPER [...] IN UNSPEC CARMELA SITE SHOULDER&UP PER ARM 85147 HEAD 06-03-2013 WEHRMAN III INJURY, CARMELA UNSPECIFIED E8849 OTHER 06-03-2013 WEHRMAN III ACCIDENTAL CARMELA FALL FROM ONE LEVEL TO ANOTHER 39768 ENTHESOPATH 08-30-2012 SHEILA ELISE Y OF UNSPECIFIED SITE 80563 VARIANTS 03-28-2012 SHE[facility] ELISE MIGRAINE NEC INTRACT MIGRAINE W/O SM 462 ACUTE 03-28-2012 SHE[facility] ELISE PHARYNGITIS 57565 PAIN IN 03-26-2012 [place] JOINT, MEDICAL ANKLE AND IMAGING ASS FOOT 49303 UNSPECIFIED 03-26-2012 [facility] SITE OF ANKLE SPRAIN AND STRAIN 43137 CONTUSION 03-26-2012 [facility] 63731 CONTUSION 03-26-2012 [facility] OF FOOT [facility] INC 04031 CRUSHING 03-26-2012 [facility] INJURY OF EMERGENCY FOOT SERVICES 8470 NECK SPRAIN 10-22-2011 [facility] AND STRAIN [facility]ERG[facility] SERVICES 20515 PLICA 09-30-2011 [facility] SYNDROME PHYSICIANS GROUP 30205 PATELLAR 09-09-2011 [facility] TENDINITIS [facility] INC V571 OTHER 09-09-2011 [facility] PHYSICAL [facility] THERAPY INC 99333 PES 09-08-2011 [facility] ANSERINUS PHYSICIANS TENDINITIS GROUP OR BURSITIS 6262 EXCESSIVE 02-13-2011 [facility] [place] N 1121 CANDIDIASIS 01-19-2011 PATHOLOGY & OF [facility] CYTOLOGY AND VAGINA LAB V7231 ROUTINE 01-19-2011 PATHOLOGY & GYNECOLOGIC CYTOLOGY AL LAB EXAMINATION 8400 ACROMIOCLAV 10-20-2010 [facility] ICULAR [facility] SPRAIN AND SERVICES STRAIN 8471 THORACIC 10-20-2010 [facility] STRAIN SERVICES Medications Na [...] NT E HI AN A IN C MI 00 07 08 10 5 00 EA [...] 46 DE ZA 11 17 17 14 MI 0 67 PH IN AR E MA [...] ET NT HI AN A IN C MI 65 03 04 30 7 00 EA [...] ET NT HI AN A IN C MI 65 02 03 30 7 00 EA [...] 30 7- 1- 00 00 SI ve HI 31 20 20 47 DE DE 10 [...] 46 DE ZA 11 17 17 14 MI 0 67 PH IN AR E MA [...] 46 DE ZA 11 16 17 14 MI 0 67 PH IN AR E MA [...] 34 20 20 DE 90 11 11 HI 1 PH CH AR AE MA L CY S OF CY NT HI AN A DI 00 06 06 0 20 10 EA 22 GA Ac CL 78 -1 -[address] 93 IN ti OF 11 4 00 SI 76 EY ve EN 78 20 20 DE AC 90 11 11 HI 1 PH CH SO AR AE D [...] Comment HYSTEROSC 6812 [facility] WOLFE OPY 1 [facility] ENDOMETRI 6823 [facility] WOLFE AL 1 [facility] Encounters Encounter Start End Date Code Location Performer Type Date [facility] - 6 6 [facility] A[facility] - 6 6 [facility] - 6 6 [facility] - 6 6 [facility] 6 6 [facility] - 5 5 [facility] - 5 5 [facility] - 5 5 [facility] - 5 5 [facility] - 5 5 [facility] - 5 5 [facility] - 3 3 [facility] - 2 2 [facility] - 2 2 [facility] - 2 2 [facility] - 2 2 [facility] - 1 1 [facility] - 1 1 [facility] - 1 1 [facility]
--- OUTSIDE RECORDS SUMMARY | 2017-03-15 11:57 | External Medical Summary Rpt | CCD ---
Author Author , SHREYA Organization SHREYA Address Unknown Phone [email or web address] Mobile Immunization Name Date Rout CVX Reac Dose Comm Prov Is Faci e tion ent ider Refu lity Give sed n Td 03-0 9 999 Hist H149 No H149 (chinmay 5-19 oric lt), 97 al Info adso rmat rbed ion - Sour ce Unsp ecif ied
--- OUTSIDE RECORDS SUMMARY | 2017-03-15 11:57 | External Medical Summary Rpt ---
Author Author SHREYA Louie, SHREYA Louie Organization [employer] Address Unknown Phone Unavailable
--- OUTSIDE RECORDS SUMMARY | 2017-03-15 11:57 | External Medical Summary Rpt | CCD ---
Author Author , SHREYA Organization SHREYA Address Unknown Phone [email or web address] Immunization Name Date Rout CVX Reac Dose Comm Prov Is Faci e tion ent ider Refu lity Give sed n Td 03-0 9 999 Hist H149 No H149 (chinmay 5-19 oric lt), 97 al Info adso rmat rbed ion - Sour ce Unsp ecif ied
--- NOTE | 2017-03-15 12:34 | Urgent Treatment Center Report ---
History of Present Issue Date/Time Seen by Provider 03/15/17 1232 Visit Reason Pt arrived:Walked Presenting Problem:PT ADVISES SHE WAS BIT BY HER PARROT ON BOTH HANDS LAST NIGHT. PT HAS SOME BRUSING AND SMALL PUNCTURES TO THE RIGHT HAND Location if Accident: Onset of symptoms date/time:/ or onset unknown for:MEDICAL HX UNKNOWN Have you (or family members/close friends) recently traveled outside the [place]? N If Yes, where/when: Have you had exposure to infectious disease within the past month? TB? Other? Specify: c/o bilateral hand/fingers pain since being bitten by her own parrot last night. Was wearing leather gloves when occurred "I can't imagine had I not". Multiple bites. "[place] like something was riping when it bit". Cleaned wounds which have today scabbed over. Ibuprofen helps pain. Pain, swelling, limited ROM however went on to work "hoping to work it out" when a co-worker "ratted me out so I had no choice but to come in". 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 Denies redness, drainage, warmth. reports parrots do not get vaccines and pt's last tetanus unknown number of years ago. Requesting one today. Source patient Exam Limitations no limitations ALLERGIES Coded Allergies: Penicillins (Severe, SWELLING, TROUBLE BREATHING 01/15/16) latex (Severe, RASH, REDNESS 01/15/16) Home Medications Reported Medications BUPRENORPHINE HCL/NALOXONE HCL (Buprenorphin-Naloxon 8-2 MG Sl) 0.25 TAB SL DAILY #26 Buspirone Hcl (Buspar 10MG) 10 MG PO TIDP PRN ANXIETY #90 TAB Amoxicillin (Amoxicillin 500MG) 500 MG PO TID LOPERAMIDE HCL (Loperamide) 2 MG OR TID PRN DIARRHEA CETIRIZINE HCL (All Day Allergy) 10 MG PO DAILY #30 TAB Levothyroxine Sodium 0.05 MG PO DAILY #30 PROMETHAZINE HCL (Promethazine 25mg Tab) 25 MG PO Q6HP PRN NAUSEA History Medical History General CAD? No Angina: No VA: No Hypertension? No Hyperlipidemia? No CHF? No DVT? No PE? No COPD? No Asthma? No Anemia? No GERD? No Gastric ulcers? No GI Bleed? No Hernia? Yes Thyroid Problems? Yes Hypothyroidism? Yes CVA? No Seizures? No Diabetes? No Renal Insuffiency? No UTI? No Stones? No BPH? No GB Disease: Yes Nephritic Syndrome? No Asplenia? No Hepatitis? No Sickle Cell Disease? No Arthritis? Yes Migraines? Yes Cataracts? No Glaucoma? No MRSA? No HIV? No TB? No Anxiety? No Depression? Yes Cancer? No More? No Additional hx: Long history of opioid abuse, IV drug abuse, mostly of crack cocaine. Immunization HX DT/Tetanus 5-10 Years Ago Flu NEVER Pneumonia Refuses Surgical Hx Previous Surgery?Y X 2 [facility] REMOVED TUBAL LIGATION [place] UMBILICAL HERNIA REPAIR Oral Surgery NOVASURE ABLATION Family History Family HX Diabetes Yes CAD Yes Hypertension Yes Hyperlipidemia Yes Cancer Yes TB No Social History Smoking Hx Smoker: Current Every Day Smoker Tobacco: Yes Type Cigarettes Packs/day 1 1/2 - 2 Packs Alcohol Alcohol: No Review of Systems All Other Systems Reviewed and Negative (as appropriate for CC) Constitutional denies fever, denies malaise Gastrointestinal denies nausea Musculoskeletal see HPI, denies other (wrist pain) Skin see HPI Psychiatric/Neurological denies numbness, denies tingling, denies other (cold skin) Physical Exam Vital Signs Vital Signs Date Time Temp Pulse Resp B/P Pulse O2 O2 Flow FiO2 Ox Delivery Rate 03/15 1342 98.7 68 16 112/70 98 03/15 1203 98.7 68 16 112/70 98 03/15 1128 98.7 68 16 112/70 98 General Appearance normal appearance, no apparent distress Respiratory Status No: respiratory distress. Cardiovascular no peripheral edema Peripheral Pulses Pulses normal Yes (radial) Extremities Ecchymosis palmar surface left 4th & 5th digits w/ TTP 4th digit MCP to throughout middle phalanx and 5th digit MCP to throughout proximal phalanx; no puncture wounds left hand & slightly limited 4th and 5th MCP ROM w/o swelling, mild swelling right thumb/ 1st metacarpal w/ puncuture wound <1mm to both palm and dorsal surfaces. No erythema or drainage, only tenderness. Another puncture wound < 1mm right 2nd digit MCP on dorsal surface. TTP right digits 1-4 MCP to throughout proximal phalanx. Ecchymosis w/ minimal swelling limited to 2nd and 3rd MCP on right hand. 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 No Results/Orders Current Medication Orders Sig/Leland Start time Last Medication Dose Route Stop Time Status Admin Diphtheria/Pertussis/ 0 .STK-MED ONE 03/15 1249 DC Tetanus Vacc IM Diphtheria/Pertussis/ 0.5 ML ONCE ONE 03/15 1245 DC 03/15 Tetanus Vacc IM 03/15 1246 1251 XRAY/CT/US XRAY/CT/US XRAY hand (bilateral) XR interpretation by reviewed by me Xray Results right hand soft tissue swelling, no acute fracture/dislocation Comment Dr. Philip, ER MD not available to review xrays and is not sure how long it will be before she can get to them. Dr. Aleman, radiologist not available at this time. Discussed w/ Cheri, caustic preparer. Discharge pt and call with any different findings. Pt aware we will call her if radiologist finds anything that I did not. Consult MD Physician Consult Consult/PCP Lidia Aguirre, Pharm D Reason parrot bite Comments Only thing close to a bird bite that she can find recommendations for is a bat. Augmentin or doxy recommended. Recommends treat w/ augmentin but pt allergic. Progress [facility] Progress Notes Date 03/15/17 Time 1244 Comment Called local re: rather or not bird bites are reportable. They are not sure and suggest I call [phone] and speak w/ Deion. Spoke to Deion Villasenor, director of environmental control. He does not believe parrot/bird bites are reported but if finds out anything differently, will call us. Departure Departure Time of Disposition 1336 Disposition DC Home or Self Care(routine) Clinical Impression Primary Impression: Bitten by parrot, initial encounter Condition STABLE Referrals NO REFERRAL Follow up with primary care for wound check in 48 hours but sooner for new or worsening symptoms. If unable to get in with PCP, return to [facility]. Follow up extrememly important because if no improvement or getting worse, could potentially need to see a hand specialist. Patient Instructions DI for Puncture Wound, How to Care for a Domestic Animal Bite Additional Instructions * Start antibiotic(s) immediately and be sure to take as ordered for the FULL length of time although you should start to see improvement over the next 24-48 hours. * Monitor closely. FU immediately for new or worsening symptoms ( including but not limited to redness, swelling, red streaking, fever, chills). * Cool/ice compresses 15 min 3-4 times a day * Monitor Temp. Seek treatment if fever develops. * For pain/inflammation: Tylenol every 4 hours as needed no more then 5 times a day or 4000mg in 24 hours and/or ibuprofen every 6 hours as needed no more then 3200mg in 24 hours (as long as your primary care doctor has told you that it is ok to take both) for fever/aches/pain. ER if fever no less than 101 despite tylenol and ibuprofen * Elevate, elevate, elevate!!!!!!!!!!!!!!!! * Wound check in 48 hours Discharge Counseling Counseled pt/family regarding diagnosis, test results, medications/RX, home care, follow up needs Prescriptions Current Visit Scripts Doxycycline Hyclate (Vibramycin) 100 MG PO BID #28 CAP 14 days for parrot bite Comments 1619: rvwd final xray results. Both hands negative at 4580
--- NOTE | 2017-03-15 12:34 | Urgent Treatment Center Report ---
History of Present Issue Date/Time Seen by Provider 03/15/17 1232 Visit Reason Pt arrived:Walked Presenting Problem:PT ADVISES SHE WAS BIT BY HER PARROT ON BOTH HANDS LAST NIGHT. PT HAS SOME BRUSING AND SMALL PUNCTURES TO THE RIGHT HAND Location if Accident: Onset of symptoms date/time:/ or onset unknown for:MEDICAL HX UNKNOWN Have you (or family members/close friends) recently traveled outside the [place]? N If Yes, where/when: Have you had exposure to infectious disease within the past month? TB? Other? Specify: c/o bilateral hand/fingers pain since being bitten by her own parrot last night. Was wearing leather gloves when occurred "I can't imagine had I not". Multiple bites. "[place] like something was riping when it bit". Cleaned wounds which have today scabbed over. Ibuprofen helps pain. Pain, swelling, limited ROM however went on to work "hoping to work it out" when a co-worker "ratted me out so I had no choice but to come in". 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 Denies redness, drainage, warmth. reports parrots do not get vaccines and pt's last tetanus unknown number of years ago. Requesting one today. Source patient Exam Limitations no limitations ALLERGIES Coded Allergies: Penicillins (Severe, SWELLING, TROUBLE BREATHING 01/15/16) latex (Severe, RASH, REDNESS 01/15/16) Home Medications Reported Medications BUPRENORPHINE HCL/NALOXONE HCL (Buprenorphin-Naloxon 8-2 MG Sl) 0.25 TAB SL DAILY #26 Buspirone Hcl (Buspar 10MG) 10 MG PO TIDP PRN ANXIETY #90 TAB Amoxicillin (Amoxicillin 500MG) 500 MG PO TID LOPERAMIDE HCL (Loperamide) 2 MG OR TID PRN DIARRHEA CETIRIZINE HCL (All Day Allergy) 10 MG PO DAILY #30 TAB Levothyroxine Sodium 0.05 MG PO DAILY #30 PROMETHAZINE HCL (Promethazine 25mg Tab) 25 MG PO Q6HP PRN NAUSEA History Medical History General CAD? No Angina: No NH: No Hypertension? No Hyperlipidemia? No CHF? No DVT? No PE? No COPD? No Asthma? No Anemia? No GERD? No Gastric ulcers? No GI Bleed? No Hernia? Yes Thyroid Problems? Yes Hypothyroidism? Yes CVA? No Seizures? No Diabetes? No Renal Insuffiency? No UTI? No Stones? No BPH? No GB Disease: Yes Nephritic Syndrome? No Asplenia? No Hepatitis? No Sickle Cell Disease? No Arthritis? Yes Migraines? Yes Cataracts? No Glaucoma? No MRSA? No HIV? No TB? No Anxiety? No Depression? Yes Cancer? No More? No Additional hx: Long history of opioid abuse, IV drug abuse, mostly of crack cocaine. Immunization HX DT/Tetanus 5-10 Years Ago Flu NEVER Pneumonia Refuses Surgical Hx Previous Surgery?Y X 2 RIAZ REMOVED TUBAL LIGATION [place] UMBILICAL HERNIA REPAIR Oral Surgery NOVASURE ABLATION Family History Family HX Diabetes Yes CAD Yes Hypertension Yes Hyperlipidemia Yes Cancer Yes TB No Social History Smoking Hx Smoker: Current Every Day Smoker Tobacco: Yes Type Cigarettes Packs/day 1 1/2 - 2 Packs Alcohol Alcohol: No Review of Systems All Other Systems Reviewed and Negative (as appropriate for CC) Constitutional denies fever, denies malaise Gastrointestinal denies nausea Musculoskeletal see HPI, denies other (wrist pain) Skin see HPI Psychiatric/Neurological denies numbness, denies tingling, denies other (cold skin) Physical Exam Vital Signs Vital Signs Date Time Temp Pulse Resp B/P Pulse O2 O2 Flow FiO2 Ox Delivery Rate 03/15 1342 98.7 68 16 112/70 98 03/15 1203 98.7 68 16 112/70 98 03/15 1128 98.7 68 16 112/70 98 General Appearance normal appearance, no apparent distress Respiratory Status No: respiratory distress. Cardiovascular no peripheral edema Peripheral Pulses Pulses normal Yes (radial) Extremities Ecchymosis palmar surface left 4th & 5th digits w/ TTP 4th digit MCP to throughout middle phalanx and 5th digit MCP to throughout proximal phalanx; no puncture wounds left hand & slightly limited 4th and 5th MCP ROM w/o swelling, mild swelling right thumb/ 1st metacarpal w/ puncuture wound <1mm to both palm and dorsal surfaces. No erythema or drainage, only tenderness. Another puncture wound < 1mm right 2nd digit MCP on dorsal surface. TTP right digits 1-4 MCP to throughout proximal phalanx. Ecchymosis w/ minimal swelling limited to 2nd and 3rd MCP on right hand. 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 No Results/Orders Current Medication Orders Sig/[place] Start time Last Medication Dose Route Stop Time Status Admin Diphtheria/Pertussis/ 0 .STK-MED ONE 03/15 1249 DC Tetanus Vacc IM Diphtheria/Pertussis/ 0.5 ML ONCE ONE 03/15 1245 DC 03/15 Tetanus Vacc IM 03/15 1246 1251 XRAY/CT/US XRAY/CT/US XRAY hand (bilateral) XR interpretation by reviewed by me Xray Results right hand soft tissue swelling, no acute fracture/dislocation Comment Dr. Philip, ER MD not available to review xrays and is not sure how long it will be before she can get to them. Dr. Aleman, radiologist not available at this time. Discussed w/ Cheri, business center representative. Discharge pt and call with any different findings. Pt aware we will call her if radiologist finds anything that I did not. Consult MD Physician Consult Consult/PCP Lidia Aguirre, Pharm D Reason parrot bite Comments Only thing close to a bird bite that she can find recommendations for is a bat. Augmentin or doxy recommended. Recommends treat w/ augmentin but pt allergic. Progress [facility] Progress Notes Date 03/15/17 Time 1244 Comment Called local re: rather or not bird bites are reportable. They are not sure and suggest I call [phone] and speak w/ Deion. Spoke to Deion Villasenor, director of environmental control. He does not believe parrot/bird bites are reported but if finds out anything differently, will call us. Departure Departure Time of Disposition 1336 Disposition DC Home or Self Care(routine) Clinical Impression Primary Impression: Bitten by parrot, initial encounter Condition STABLE Referrals NO REFERRAL Follow up with primary care for wound check in 48 hours but sooner for new or worsening symptoms. If unable to get in with PCP, return to [facility]. Follow up extrememly important because if no improvement or getting worse, could potentially need to see a hand specialist. Patient Instructions DI for Puncture Wound, How to Care for a Domestic Animal Bite Additional Instructions * Start antibiotic(s) immediately and be sure to take as ordered for the FULL length of time although you should start to see improvement over the next 24-48 hours. * Monitor closely. FU immediately for new or worsening symptoms ( including but not limited to redness, swelling, red streaking, fever, chills). * Cool/ice compresses 15 min 3-4 times a day * Monitor Temp. Seek treatment if fever develops. * For pain/inflammation: Tylenol every 4 hours as needed no more then 5 times a day or 4000mg in 24 hours and/or ibuprofen every 6 hours as needed no more then 3200mg in 24 hours (as long as your primary care doctor has told you that it is ok to take both) for fever/aches/pain. ER if fever no less than 101 despite tylenol and ibuprofen * Elevate, elevate, elevate!!!!!!!!!!!!!!!! * Wound check in 48 hours Discharge Counseling Counseled pt/family regarding diagnosis, test results, medications/RX, home care, follow up needs Prescriptions Current Visit Scripts Doxycycline Hyclate (Vibramycin) 100 MG PO BID #28 CAP 14 days for parrot bite Comments 1619: rvwd final xray results. Both hands negative at 6535
[2017-03-15] MEDS ORDERED: DOXYCYCLINE HY100 M4 PO (13:39)
[2017-03-15 13:42] VITALS: BP 112/70
--- NOTE | 2017-03-15 13:50 | RADIOLOGY REPORT PS360 ---
HAND-LT-3 VIEWS, HAND-RT 3 VIEWS HISTORY: multiple bites from large parrot bilateral hands injury, pain both hands Patient Age: 36 years: Female Ordering Physician: RAYMUNDO LOVE APRN TECHNIQUE: 3 view right hand and left hand COMPARISON :Prior 3 view left hand 10/21/2015 Prior right hand September 2013 ========= LEFT HAND 3 views: Osseous structures left hand intact. No fracture nor dislocation. Joint spaces well-maintained. No erosions No interval change since 2015. No radiopaque foreign bodies evident IMPRESSION Negative left hand ======= RIGHT HAND 3 views: Right hand appears intact.Osseous structures intact. No fracture nor dislocation. Joint spaces well-maintained. No radiopaque foreign bodies evident No interval change since 2013 study. IMPRESSION: Negative right hand.
== END 2017-03-15 13:45 | disposition home or self-care (01) ==
LOC: ER 11:25 → UTC 11:33 → ER 11:33 → UTC 13:45
DX: S61.031A Puncture wound without foreign body of right thumb without damage to nail, initial encounter (principal); W61.01XA Bitten by parrot, initial encounter; Y92.019 Unspecified place in single-family (private) house as the place of occurrence of the external cause; Z23 Encounter for immunization; Z88.0 Allergy status to penicillin; Z91.040 Latex allergy status; E03.9 Hypothyroidism, unspecified; F17.210 Nicotine dependence, cigarettes, uncomplicated